=== PATIENT | male | born 1970 | race Caucasian/White ===

== ENCOUNTER → 2022-07-23 14:52 | Outpatient (CLI) | payer BC, SELFPAY ==
--- NOTE | ~2022-07-23 | XR_ITS ---
XR knee RT 2V 07/23/2022 15:03 Indication: Right knee pain. Status post fall 2 years ago. Procedure: 2 views right knee Comparison: No prior studies for comparison. Findings: There is mild patellofemoral compartment osteoarthritis. No acute fracture or traumatic mal alignment. No significant joint effusion. No foreign bodies. Impression: 1: No acute bone or joint abnormality. 2: Mild patellofemoral compartment osteoarthritis. Reviewed, dictated and finalized at location A. L ATTORNEY Impression: 1: No acute bone or joint abnormality. 2: Mild patellofemoral compartment osteoarthritis.
== END ==
PROVIDERS: PCP Family Medicine; Visit Provider Nurse Practitioner Family
DX: M17.11 Unilateral primary osteoarthritis, right knee (principal)
CPT/HCPCS: 73560